=== PATIENT | female | born 1970 | race Caucasian/White ===

== ENCOUNTER 2022-01-06 16:20 | Outpatient (CLI) | payer BC, SELFPAY ==
--- NOTE | ~2022-01-06 | XR_ITS ---
XR chest 2V DATE: 01/06/2022 16:55 INDICATION: Cough for 2 months TECHNIQUE: PA and lateral views COMPARISON: None FINDINGS: Normal heart size. Mild aortic arch calcification, minimal aortic unfolding. Prominent card iophrenic fat pad on the right. No hilar or mediastinal enlargement. No pulmonary infiltrate or consolidation, pleural effusion or pulmonary vascular congestion or pneumo thorax. Included skeletal structures are unremarkable. IMPRESSION: No active cardiopulmonary disease Mild aortic atherosclerosis Reviewed, dictated and finalized at location A.
[2022-01-06 16:57] LABS: Mean Corpuscular Hemoglobin 15.6 pg (26-34); Mean Corpuscular Volume 62.2 fl (80-100); Mean Platelet Volume 9.6 fl (7.4-10.4); Platelet Count Result 339 k/mm3 (150-375); Red Blood Count 3.15 M/mm3 (4.2-5.4); Red Cell Distribution Width 19.6 % (11.5-14.5); White Blood Count 8.5 K/mm3 (4.5-10.0)
[2022-01-06 17:16] LABS: LDL Cholesterol Direct 100 mg/dL
[2022-01-06 17:19] LABS: Hematocrit 19.6 % (37.0-47.0); Hemoglobin 4.9 g/dL (12.0-15.0)
[2022-01-06 17:40] LABS: Alanine Aminotransferase 16 U/L (4-35); Albumin Level 4.3 g/dL (3.5-5.1); Alkaline Phosphatase 81 U/L (38-126); Anion Gap 8 mmol/L (8-16); Aspartate Amino Transferase 21 U/L (14-36); Bilirubin,Total 1.1 mg/dL (0.2-1.3); Blood Urea Nitrogen 13 mg/dL (7-17); Calcium 8.6 mg/dL (8.4-10.2); Carbon Dioxide 24 mmol/L (22-30); Chloride 106 mmol/L (98-107); Cholesterol 160 mg/dL (0-200); Glucose 97 mg/dL (65-110); HDL Direct 30 mg/dL; Potassium 3.8 mmol/L (3.4-5.0); Sodium 138 mmol/L (137-145); Triglycerides 101 mg/dL (<150)
[2022-01-06 17:53] LABS: Estimated Glomerular Filt Rate > 60
[2022-01-06 17:57] LABS: Vitamin D 25 Hydroxy 28.2 ng/mL
== END 2022-01-06 16:21 | disposition home or self-care (01) ==
PROVIDERS: PCP Family Medicine; Visit Provider Nurse Practitioner Family
DX: R05.9 Cough, unspecified (principal); Z68.37 Body mass index [BMI] 37.0-37.9, adult; Z13.220 Encounter for screening for lipoid disorders; Z13.29 Encounter for screening for other suspected endocrine disorder; E56.9 Vitamin deficiency, unspecified; N92.0 Excessive and frequent menstruation with regular cycle; I70.0 Atherosclerosis of aorta
CPT/HCPCS: 36415; 71046; 80053; 80061; 82306; 84443; 85027

== ENCOUNTER 2022-01-06 17:58 | Observation (INO) | payer BC, SELFPAY ==
[2022-01-06] VITALS (10 sets, daily range): BP systolic 131–183; BP diastolic 58–83; PULSE 9–111; RESP 14–26; TEMP 33.8–37.1; O2SAT 98–100; BMI 36.3
--- NOTE | ~2022-01-06 | US_ITS ---
EXAMINATION: US pelvic complete w TV DATE: 01/07/2022 17:09 INDICATION: Heavy menstruation. Anemia. TECHNIQUE: Multiple transabdominal and transvaginal sonographic images of the pelvis were obtained. COMPARISON: None. FINDINGS: TRANSABDOMINAL ULTRASOUND: The uterus measures 10.6 x 5.6 x 6.4 cm. There is no free fluid in the pelvis. TRANSVAGINAL ULTRASOUND: The endometrial complex measures 8 mm in thickness. There is a 5.5 cm submucosal fibroid. The right o vary measures 2.5 x 2.0 x 1.1 cm. The left ovary measures 4.0 x 2.0 x 2.6 cm. IMPRESSION: 1. Uterine fibroid. Reviewed, dictated and finalized at location A. IMPRESSION: 1. Uterine fibroid.
--- NOTE | 2022-01-06 18:30 | ED.RECABL ---
HPI - Recheck/Abnormal Lab/Rx General Chief Complaint: Recheck/Abnormal Lab/Rx Stated Complaint: low hemoglobin Time Seen by Provider: 01/06/22 18:07 History of Present Illness HPI narrative: Patient is a 51-year-old female who presents ER with abnormal hemoglobin level. Patient was seen in the PCP office today for weakness that is been ongoing over the last 2 months. She gets some occasional dizziness. Lab work showed that her hemoglobin was 4.3. She reports that she does have heavy and frequent menstrual periods. This has been ongoing for years. She has not seen a surveyor's assistant. She reports when she is on her cycle she will go through about 8 tampons in a day with an additional 3-4 pads. No history of bleeding disorder. She is not on any blood thinners. Denies dark black stools. Related Data Allergies Allergy/AdvReac Type Severity Reaction Status Date / Time Sulfa (Sulfonamide AdvReac Intermediate Rash Verified 01/06/22 18:15 Antibiotics) Review of Systems Constitutional: Constitutional: Denies chills, Reports fatigue, Denies fever(s) and Reports weakness ENT: Denies nasal congestion and Denies sore throat Cardiovascular: Cardiovascular: Denies chest pain, Denies rapid heart rate and Denies radiating jaw, neck or arm pain Respiratory: Respiratory: Denies cough, Denies dyspnea and Denies wheezing Gastrointestinal: Gastrointestinal: Denies nausea and Denies vomiting Genitourinary: Genitourinary: Reports abnormal vaginal bleeding [facility] Past Medical History Medical History (Updated 01/06/22 @ 21:25 by Sergey Delong MD) BMI 37.0-37.9, adult GERD (gastroesophageal reflux disease) Hypertension Surgical History Surgical History (Updated 01/06/22 @ 18:32 by Sergey Delong MD) No pertinent past surgical history Family History Family History Father Asthma Hypertension Hyperlipidemia Acute myocardial infarction Mother Asthma Sibling Asthma Hypertension Social History Social History Smoking status: Never smoker Second hand tobacco smoke exposure: No Alcohol intake: current Substance use: never Substance use type: does not use 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 Gender identity (if verbalized by the patient): Female Exam Narrative: GENERAL: Well-appearing, well-nourished, and in no acute distress. HEAD: Normocephalic, atraumatic. EYES: PERRL and EOMI. ENT: Mucous membranes moist. CHEST: Clear to auscultation. No respiratory distress. HEART: Regular rate and rhythm. Normal peripheral pulses. ABDOMEN: Soft, nontender, nondistended. EXTREMITIES: Normal range of motion. No edema. SKIN: Warm, dry, no rash. NEURO: Alert and oriented x3. PSYCH: Normal mood and affect. Course Course Emergency Course: Patient informed of results. Admit to hospitalist service. Will transfuse. Vital Signs Vital signs: Vital Signs Temperature 96.6 F L 01/06/22 18:00 Pulse Rate 111 H 01/06/22 18:00 Respiratory Rate 20 01/06/22 18:00 Blood Pressure 183/79 H 01/06/22 18:00 Pulse Oximetry 100 01/06/22 18:00 Temperature 97.9 F 01/06/22 20:32 Pulse Rate 93 01/06/22 20:32 Respiratory Rate 22 H 01/06/22 20:32 Blood Pressure 152/72 H 01/06/22 20:32 Pulse Oximetry 100 01/06/22 20:32 MDM - Recheck/Abnormal Lab/Rx Lab Data Result diagrams: 01/06/22 18:19 Labs: Lab Results 01/06/22 01/06/22 01/06/22 Range/Units 18:19 18:19 18:19 WBC (4.5-10.0) K/mm3 RBC (4.2-5.4) M/mm3 Hgb (12.0-15.0) g/dL Hct (37.0-47.0) % MCV (80-100) fl MCH (26-34) pg MCHC (32-36) g/dl RDW (11.5-14.5) % Plt Count (150-375) k/mm3 MPV (7.4-10.4) fl Immature Gran % (Auto) (0-0.5) % Neut % (Auto) (45.5-73.1) % Lymph % (Auto) (18.3-44.2) % Cowley % (Au
[2022-01-06 18:34] LABS: Immature Reticulocyte Fraction 22.9 % (3.0-15.9); Reticulocyte Hemoglobin Conten 14.7 pg (28.2-35.7); Reticulocytes Absolute 0.07 B/L (32.2-175.7)
--- NOTE | 2022-01-06 18:41 | PC.NURSE ---
rectal exam done by provider with typewriter operator automatic present
[2022-01-06 19:20] LABS: Iron 19 ug/dL (37-170)
[2022-01-06 19:25] LABS: Basophils Percent Auto 0.4 % (0.2-1.2); Eosinophils Absolute Auto 0.1 K/mm3 (0-0.3); Eosinophils Percent Auto 0.8 % (0-4.4); Immature Granulocyte Absolute 0.03 K/mm3 (0.00-0.031); Immature Granulocyte Percent A 0.4 % (0-0.5); Lymphocytes Absolute Auto 1.69 K/mm3 (0.9-3.2); Lymphocytes Percent Auto 19.9 % (18.3-44.2); Mean Corpuscular HGB Conc 24.4 g/dl (32-36); Mean Corpuscular Hemoglobin 15.1 pg (26-34); Mean Corpuscular Volume 61.9 fl (80-100); Mean Platelet Volume 10.5 fl (7.4-10.4); Monocytes Absolute Auto 0.6 K/mm3 (0.1-0.6); Monocytes Percent Auto 7.4 % (2.6-8.5); Neutrophils Percent Auto 71.1 % (45.5-73.1); Platelet Count Result 376 k/mm3 (150-375); Red Blood Count 3.18 M/mm3 (4.2-5.4); Red Cell Distribution Width 19.9 % (11.5-14.5); White Blood Count 8.5 K/mm3 (4.5-10.0)
[2022-01-06 19:34] LABS: Hematocrit 19.7 % (37.0-47.0); Hemoglobin 4.8 g/dL (12.0-15.0); Percent Iron Saturation 4 % (20-50)
[2022-01-06 19:35] LABS: Hypochromasia 2+ (NORMAL); Ovalocytes 1+ (NORMAL); Platelet Estimate Increased (Adequate)
[2022-01-06 19:56] LABS: Ferritin 3.51 ng/mL (11.1-264)
[2022-01-06] MEDS: TUBING, BLOOD SET 1 EACH XX (20:17)
[2022-01-06] MEDS: SODIUM CHLORIDE 0.9% IV 250 ML 30 ML IV CONT (20:17)
--- NOTE | 2022-01-06 20:21 | PM.IMHP ---
H&P: HPI History of Present Illness Date/Time: 01/06/22 20:21 Chief Complaint: Fatigue. Narrative: This is a 51-year-old female with past medical history significant for gastroesophageal reflux disease. Patient recently moved to the area roughly 2 years ago she has been trying to get her care established. She presents to the emergency room due to fatigue, shortness of breath, dizziness. Patient's workup was significant for hemoglobin of 4.8 . Patient denies any melena, bright red blood per rectum, hematemesis, unintentional weight loss, she states that has heavy menses. Patient denies any nausea, vomiting, abdominal pain, chest pain, leg swelling. Patient is being admitted for blood transfusion, further evaluation ,management and treatment. Review of Systems Review of Systems: Fatigue, dizziness, shortness of breath, palpitations. Constitutional: Constitutional: Denies chills, Reports fatigue, Denies fever(s), Denies headache(s), Reports lethargy, Denies malaise, Denies night sweats, Denies weakness and Denies weight loss Eyes: Eyes: Denies change in vision ENT: Denies dysphagia, Denies vertigo, Reports dizziness, Denies nasal congestion, Denies nasal discharge, Denies nasal obstruction and Denies odynophagia Cardiovascular: Cardiovascular: Denies chest pain, Denies pedal edema, Denies edema, Denies leg edema, Reports lightheadedness, Denies palpitations, Reports dyspnea, Reports dyspnea on exertion, Denies orthopnea and Denies paroxysmal nocturnal dyspnea Respiratory: Respiratory: Denies cough and Denies dyspnea Gastrointestinal: Gastrointestinal: Denies hematochezia, Denies coffee ground emesis, Denies dyspepsia, Denies heartburn, Denies nausea and Denies vomiting Genitourinary: Genitourinary: Reports menorrhagia and Denies dysuria Musculoskeletal: Musculoskeletal: Denies muscle weakness Integumentary/Breasts: Skin/Breast: Denies rash Neurologic: Denies focal weakness and Denies Sensory deficit (Neuro) Psychiatric: Psychiatric: Reports no additional psychiatric complaints and Reports as per HPI Endocrine: Endocrine: Denies cold intolerance, Denies fatigue, Denies flushing, Denies heat intolerance, Denies polyphagia, Denies polydipsia and Denies palpitations Hematologic/Lymphatic: Hematologic/Lymphatic: Denies easy bleeding and Denies easy bruising Allergic/Immunologic: Allergic/Immunologic: Reports no additional allergic/immunologic complaints and Reports as per HPI [facility] Past Medical History Medical History (Updated 01/07/22 @ 00:56 by Moriah Card MD) BMI 37.0-37.9, adult GERD (gastroesophageal reflux disease) Hypertension Surgical History Surgical History (Updated 01/06/22 @ 18:32 by Sergey Delong MD) No pertinent past surgical history Family History Family History Father Asthma Hypertension Hyperlipidemia Acute myocardial infarction Mother Asthma Sibling Asthma Hypertension Social History Social History Smoking status: Never smoker Second hand tobacco smoke exposure: No Alcohol intake: current Drinks per week: 3 Substance use: never Substance use type: does not use 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
--- NOTE | 2022-01-06 20:25 | PC.NURSE ---
1st unit of PRBCs infusing at this time. no s/s of reaction
--- NOTE | 2022-01-06 20:54 | PC.NURSE ---
error with intake of HR for vital signs. HR incorrect with 9, corrected in TAR vitals
[2022-01-06 21:12] LABS: SARS-CoV-2 RNA PCR Negative
--- NOTE | 2022-01-06 23:04 | PC.NURSE ---
This patient, Ana Jacome, was admitted to Medical Room 349-01. Patient/family oriented to hospital policies and general routines including ID bracelet, bed and alarms, visiting hours, pain management, procedures, bathroom and other care routines, personal items, smoking policy, room service/diet, and visiting hours. Information on how to activate the Rapid Response Team has been discussed. Patient/Family are encouraged to report perceived risks to care and to ask questions if they do not understand what they are told or what they should do. Second unit of blood started, see TAR
[2022-01-07] VITALS: BP 131/58; PULSE 88; RESP 20; TEMP 37; O2SAT 100
[2022-01-07 01:10] VITALS: BP 148/77; PULSE 84; RESP 20; TEMP 36.6; O2SAT 98
[2022-01-07 05:51] LABS: Hematocrit 25.8 % (37.0-47.0); Hemoglobin 7.2 g/dL (12.0-15.0); Immature Platelet Fraction Pct 4.3 % (0.9-11.2); Mean Corpuscular HGB Conc 27.9 g/dl (32-36); Mean Corpuscular Hemoglobin 19.2 pg (26-34); Mean Corpuscular Volume 68.8 fl (80-100); Mean Platelet Volume 10.3 fl (7.4-10.4); Platelet Count Result 298 k/mm3 (150-375); Red Blood Count 3.75 M/mm3 (4.2-5.4); Red Cell Distribution Width 25.3 % (11.5-14.5); White Blood Count 6.6 K/mm3 (4.5-10.0)
[2022-01-07 06:00] VITALS: BP 135/66; PULSE 78; RESP 16; TEMP 37.1; O2SAT 99
[2022-01-07 14:00] VITALS: BP 147/76; PULSE 103; RESP 20; TEMP 36.4; O2SAT 98
--- NOTE | 2022-01-07 17:20 | PM.DS ---
DS: Admitting Diagnosis Discharge Date 01/07/22 Admitting Diagnosis (1) Hypochromic microcytic anemia: Code(s): D50.9 - Iron deficiency anemia, unspecified Status: Acute Assessment and Plan: (2) Dysmenorrhea: Code(s): N94.6 - Dysmenorrhea, unspecified Status: Acute Assessment and Plan: (3) Hypertension: Qualifiers: Hypertension type: primary hypertension Qualified Code(s): I10 - Essential (primary) hypertension Code(s): I10 - Essential (primary) hypertension Status: Acute Assessment and Plan: (4) GERD (gastroesophageal reflux disease): Qualifiers: Code(s): K21.9 - Gastro-esophageal reflux disease without esophagitis Status: Acute Assessment and Plan: DS: Discharge Diagnosis Discharge Diagnosis (1) Dysmenorrhea: Code(s): N94.6 - Dysmenorrhea, unspecified Status: Acute (2) Hypochromic microcytic anemia: Code(s): D50.9 - Iron deficiency anemia, unspecified Status: Acute (3) Anemia: Code(s): D64.9 - Anemia, unspecified Status: Acute (4) Hypertension: Qualifiers: Hypertension type: primary hypertension Qualified Code(s): I10 - Essential (primary) hypertension Code(s): I10 - Essential (primary) hypertension Status: Acute (5) GERD (gastroesophageal reflux disease): Qualifiers: Esophagitis presence: esophagitis presence not specified Qualified Code(s): K21.9 - Gastro-esophageal reflux disease without esophagitis Code(s): K21.9 - Gastro-esophageal reflux disease without esophagitis Status: Acute (6) Heavy menses: Qualifiers: Menorrhagia type: with regular cycle Qualified Code(s): N92.0 - Excessive and frequent menstruation with regular cycle Code(s): N92.0 - Excessive and frequent menstruation with regular cycle Status: Acute (7) BMI 37.0-37.9, adult: Code(s): Z68.37 - Body mass index [BMI] 37.0-37.9, adult Status: Acute (8) Uterine fibroid: Code(s): D25.9 - Leiomyoma of uterus, unspecified Status: Acute DS: Summary Hospital Course Reason for hospitalization: anemia Hospital Course: 51 yo F w menorrhagia admitted to hospital w anemia 2/2 blood loss. received 2U PRBCs and was discharged home in stable condition on Fe++ w indications to follow up w PCP x referral to vocational rehabilitation teacher for ongoing care. Time Spent with Patient Time attestation: Total time spent providing and/or coordinating discharge services: Time spent: Less than 30 minutes Exam Const: General: cooperative, comfortable, no acute distress, well developed, alert, awake and other (Well-appearing) Nutritional Appearance: average body habitus Orientation/consciousness: patient oriented x3 HENMT: Head: normal to inspection, normocephalic and atraumatic Ears: hearing grossly normal bilaterally General nose exam: Normal external nose present Face and sinus: normal facial exam Mouth: Yes Normal oral and palatal mucosa present Eyes: General: appearance normal, both eyes and all related structures Sclera: sclerae normal EOM: EOMs intact bilaterally Neck: Neck: normal visual inspection, full ROM, no lymphadenopathy, supple and no JVD Resp: Effort & Inspection: normal respiratory effort and able to speak in complete sentences Cardio: Jugular venous distension: no JVD GI: Inspection: normal to inspection : General: Yes deferred Skin: Rashes: no rashes Wounds: no wounds Neuro: General: patient oriented x3 and CN's II-XI intact bilaterally Cranial nerves: Yes CN's II-XII intact bilaterally Cognition (Neuro): normal cognition Speech: normal speech Gait exam (Neuro): Normal gait present Motor exam (neuro): 5/5 motor strength present throughout Sensory Exam: No Sensory deficit (Neuro) Extrem: General: normal to inspection, full ROM, no joint enlargement and no pedal edema DS: Data Data Completed an
== END 2022-01-07 17:55 | disposition home or self-care (01) ==
LOC: ANHED 21:25 → ANH3MED 21:28
PROVIDERS: Internal Medicine; Admitting Provider Hospitalist; Emergency Provider Emergency Medicine; PCP Family Medicine; Visit Provider Hospitalist
DX: D50.9 Iron deficiency anemia, unspecified (principal); N94.6 Dysmenorrhea, unspecified; N92.0 Excessive and frequent menstruation with regular cycle; D25.9 Leiomyoma of uterus, unspecified; R53.83 Other fatigue; R06.02 Shortness of breath; R42 Dizziness and giddiness; K21.9 Gastro-esophageal reflux disease without esophagitis; I10 Essential (primary) hypertension; Z68.37 Body mass index [BMI] 37.0-37.9, adult; Z20.822 Contact with and (suspected) exposure to COVID-19
CPT/HCPCS: 36415; 36430; 76830; 76856; 82607; 82728; 82746; 83540; 83550; 84443; 85025; 85027; 85046; 85055; 86850; 86900; 86901; 86920; 96360; 96361; 99285; C9803; G0378; J7050; P9016; U0003; U0005

== ENCOUNTER 2022-01-15 08:08 | Outpatient (CLI) | payer BC, SELFPAY ==
[2022-01-15 08:20] LABS: Hemoglobin 7.8 g/dL (12.0-15.0); Mean Corpuscular HGB Conc 27.9 g/dl (32-36); Mean Corpuscular Hemoglobin 19.2 pg (26-34); Mean Corpuscular Volume 68.8 fl (80-100); Mean Platelet Volume 9.9 fl (7.4-10.4); Platelet Count Result 326 k/mm3 (150-375); Red Blood Count 4.07 M/mm3 (4.2-5.4); Red Cell Distribution Width 27.1 % (11.5-14.5); White Blood Count 6.4 K/mm3 (4.5-10.0)
== END 2022-01-15 08:09 | disposition home or self-care (01) ==
LOC: ANHLAB 08:10
PROVIDERS: PCP Family Medicine; Visit Provider Nurse Practitioner Family
DX: D64.9 Anemia, unspecified (principal)
CPT/HCPCS: 36415; 85027

== ENCOUNTER 2022-02-12 11:14 | Outpatient (CLI) | payer BC, SELFPAY ==
--- NOTE | 2022-02-12 11:41 | ECG_ITS ---
Measurements Intervals Manter Rate: 80 P: 47 MD: 152 QRS: 13 QRSD: 91 T: 11 QT: 368 QTc: 426 Interpretive Statements SINUS RHYTHM NO PREVIOUS ECG AVAILABLE FOR COMPARISON Electronically Signed On 02-12-2022 13:47:36 CDT by Jhonatan Bass M.D.
[2022-02-12 12:28] LABS: Hematocrit 26.6 % (37.0-47.0); Hemoglobin 7.2 g/dL (12.0-15.0); Immature Platelet Fraction Pct 5.2 % (0.9-11.2); Mean Corpuscular HGB Conc 27.1 g/dl (32-36); Mean Corpuscular Hemoglobin 19.4 pg (26-34); Mean Corpuscular Volume 71.5 fl (80-100); Platelet Count Result 273 k/mm3 (150-375); Red Blood Count 3.72 M/mm3 (4.2-5.4); Red Cell Distribution Width 24.2 % (11.5-14.5); White Blood Count 5.1 K/mm3 (4.5-10.0)
== END 2022-02-12 11:15 | disposition home or self-care (01) ==
LOC: ANHLAB 11:16
PROVIDERS: PCP Family Medicine; Visit Provider Nurse Practitioner Family
DX: D50.9 Iron deficiency anemia, unspecified (principal); I10 Essential (primary) hypertension
CPT/HCPCS: 36415; 85027; 85055; 93005

== ENCOUNTER 2022-02-14 01:41 | Day surgery (SDC) | payer BC, SELFPAY ==
[2022-02-08 15:30] VITALS: BMI 34.9
--- NOTE | 2022-02-08 15:42 | PC.NURSE ---
Report to the Outpatient Waiting Room, entrance under the green pavilion located off [facility], at time 10:00 on date 02/14/22. OR Time: 12:00. - You and your visitor will be asked a series of questions to screen for COVID 19 for your protection. - Only one visitor is allowed at this time. - The patient visitor is requested to leave or wait in car when not with patient. - A mask is required within the hospital. Patients may have clear liquids (water, carbonated beverages, clear teas, apple juice) until 3 hours prior to surgery (9:00) with a maximum of 20 ounces. - No food from midnight until time of surgery Take the following medications with a SIP of water the morning of surgery: NONE Medications to discontinue per physician: VITAMINS Date to take last dose: 02/11/22 Please no make-up, nail yi, hairspray, perfume, deodorant, or body powder the day of surgery. No jewelry (including any body piercings) or valuables the day of surgery, leave them at home. Please take a shower or bath the night before, or the morning of, surgery with an antibacterial soap. Wear comfortable, loose fitting clothing. - Jewelry must be removed prior to entering the operating room. Rings and piercings that are not removed may be cut off. - The hospital will not accept responsibility for valuables. - Please leave all valuables, including medications, at home the day of surgery. If you are going home after surgery, a licensed lokie driver must drive you home. - NO public transportation without another adult. - We recommend that an adult stay with you for 24 hours following discharge. - We also recommend that you do not drive, make important decision, drink alcoholic beverages, or take any drugs that were not prescribed by your health care provider for at least 24 hours after your discharge time. Follow any additional instructions given to you from your surgeon. If you or anyone in your household have experienced Covid symptoms in the past week, please notify your surgeon or the nurse liaison at the phone number below for possible testing. Telephone instructions given to MICKIE NGUYEN and asked if any additional questions and then verbalized understanding. Patient advised to call surgeon office or pre surgery nurse liaison [phone] if any additional questions.
--- NOTE | 2022-02-14 06:57 | WPDHPUPDATE1 ---
History and Physical Update Update Date/Time: 02/14/22 06:57 History and Physical has been reviewed, including an updated exam of the patient. There are NO changes in the patient's condition. Risks, benefits, and alternatives have been discussed and questions answered. Patient agrees to proceed with procedure.
--- NOTE | 2022-02-14 06:57 | PM.HPGS ---
History of Present Illness History of Present Illness Consent: Risks, benefits, and alternatives have been discussed and questions answered. Patient agrees to proceed with procedure. Chief complaint: menorrhagia Narrative: Nicky Jacome is a 51 year old female with menorrhagia and severe anemia. Patient saw her primary physician for a well check and routine labs revealed hemoglobin to be 4.8 therefore the patient was sent to the emergency room and transfused 2units of packed red blood cells. Patient was referred for further evaluation. Ultrasound shows a 5.5cm fibroid. Upon review of her cycles the patient states her cycles have been getting heavier with clots. She is using a pad and tampon about every hour for the 1st 2 to 3 days. Her cycles last a total 5 days. It was recommended to proceed with hysteroscopy D and C and removal of the prolapsed fibroid found on exam. Possible additional myomectomy if submucosal fibroids are found. Risks of infection, bleeding, perforation, and fluid imbalance were reviewed. Due to the prolapse fibroid the inability to perform additional myomectomy was discussed. She is aware a 2nd procedure may be need to be performed. Patient voiced understanding and agrees to proceed. Review of Systems Constitutional: Constitutional: Reports fatigue Gastrointestinal: Gastrointestinal: Reports constipation and Reports diarrhea Genitourinary: Genitourinary: Reports urinary incontinence (Urge incontinence occasionally; dysmenorrhea) and Reports urinary urgency PMFSH Past Medical History Medical History BMI 36.0-36.9,adult BMI 37.0-37.9, adult GERD (gastroesophageal reflux disease) Hypertension Surgical History Surgical History No pertinent past surgical history Family History Family History Father Asthma Hypertension Hyperlipidemia Acute myocardial infarction Mother Asthma Sibling Asthma Hypertension Social History Social History Smoking status: Never smoker Second hand tobacco smoke exposure: No Alcohol intake: current Drinks per week: 2 Substance use: never Substance use type: does not use Living arrangements: with family 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 verbalized by the patient): Female Spiritual care concerns: No Meds Home Medications and Allergies Home Medications Medication Instructions Recorded Confirmed Type ferrous sulfate 325 mg (65 mg 325 mg PO BID #60 tabs 01/07/22 02/08/22 Rx iron) tablet,delayed release lisinopril 10 mg tablet 10 mg PO DAILY #30 tabs 01/21/22 02/08/22 Rx cholecalciferol (vitamin D3) 1,250 50,000 unit PO WEEKLY #8 caps 02/07/22 02/08/22 Rx mcg (50,000 unit) capsule tranexamic acid 650 mg tablet 650 mg PO BID #60 tabs 02/07/22 02/08/22 Rx omeprazole 20 mg capsule,delayed 20 mg PO HS 02/08/22 02/08/22 History release Allergies Allergy/AdvReac Type Severity Reaction Status Date / Time Sulfa (Sulfonamide AdvReac Intermediate Rash Verified 02/08/22 15:27 Antibiotics) Exam Const: General: healthy appearing and alert Orientation/consciousness: patient oriented x3 Resp: Effort & Inspection: normal respiratory effort Auscultation: clear to auscultation bilaterally Cardio: Rate: regular rate Rhythm: regular rhythm GI: GI Palp: Yes Soft to palpation, No Tenderness to palpation present (GI) and No Palpable mass present : External Female Exam: normal external appearance Speculum Exam - Vagina: normal appearance of the vagina and normal vaginal discharge Speculum Exam - Cervix: Other cervical findings present (2cm prolapsed fibroid) Bimanual exam- vagina & uterus: uterine size normal and consistency normal
[2022-02-14] MEDS: ACETAMINOPHEN 500 MG TABLET 1000 MG PO (10:10)
[2022-02-14] MEDS: LACTATED RINGERS 1,000 ML 30 ML IV CONT ×2 (10:10→13:04)
--- NOTE | 2022-02-14 10:12 | WPDANESEPPF ---
Anes - Initial Pre Proc Eval Procedure: Operation Date: 02/14/22 12:00 Proposed Procedures p Hysteroscopy Dilation and Curettage - Melissa Nava MD Date/Time: 02/14/22 10:12 Surgeon: Melissa Nava MD Pre Op Diagnosis: menorrhagia Patient Data Age: 51 Gender: F Height: 1.6 m Weight: 88 kg Allergies Allergy/AdvReac Type Severity Reaction Status Date / Time Sulfa (Sulfonamide AdvReac Intermediate Rash Verified 02/08/22 15:27 Antibiotics) Home Medications Medication Instructions Recorded Confirmed Type ferrous sulfate 325 mg (65 mg 325 mg PO BID #60 tabs 01/07/22 02/08/22 Rx iron) tablet,delayed release lisinopril 10 mg tablet 10 mg PO DAILY #30 tabs 01/21/22 02/08/22 Rx cholecalciferol (vitamin D3) 1,250 50,000 unit PO WEEKLY #8 caps 02/07/22 02/08/22 Rx mcg (50,000 unit) capsule tranexamic acid 650 mg tablet 650 mg PO BID #60 tabs 02/07/22 02/08/22 Rx omeprazole 20 mg capsule,delayed 20 mg PO HS 02/08/22 02/08/22 History release Patient hx anesthesia problems: none Family hx anesthesia problems: none Results Review: All pre-operative results and documents have been reviewed as part of the pre-operative evaluation. [facility] Past Medical History Medical History BMI 36.0-36.9,adult BMI 37.0-37.9, adult GERD (gastroesophageal reflux disease) Hypertension Surgical History Surgical History No pertinent past surgical history Family History Family History Father Asthma Hypertension Hyperlipidemia Acute myocardial infarction Mother Asthma Sibling Asthma Hypertension Social History Social History Smoking status: Never smoker Second hand tobacco smoke exposure: No Alcohol intake: current Drinks per week: 2 Substance use: never Substance use type: does not use Living arrangements: with family 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 Informed Consent: The patient's anesthetic plan and its attendant risks and benefits were discussed with the patient/family/POA. Questions were solicited and answers provided to the satisfaction of the patient/family/POA.
[2022-02-14 10:13] VITALS: BP 144/79; PULSE 85; RESP 16; TEMP 36.3; O2SAT 99
[2022-02-14 13:04] VITALS: BP 124/67; PULSE 69; RESP 20
--- NOTE | 2022-02-14 13:07 | W.PM.PROC2 ---
Procedure Note - Detailed Date of Procedure 02/14/22 Pre-op Diagnosis menorrhagia Post-op Diagnosis Same Procedure Performed Hysteroscopic myomectomy with D&C Surgeon Melissa Nava MD Anesthesia MAC and Local Findings Prolapsed 2x2cm mass through the cervix appears to be a polyp due to the mucus although the consistency could also be a fibroid. Three large submucosal fibroids grossly appearing endometrial cavity Description of Procedure The patient was taken to the operating room and placed under anesthesia in the dorsal lithotomy position. She was prepped and draped in the usual sterile fashion. [place] speculum was placed in the vagina and the cervix is grasped on the anterior lip with a tenaculum. The cervix is serially injected with 1% lidocaine in each quadrant. The ring forceps were used to remove the prolapsed mass. The uterus is sounded to 8cm. The cervix is then serially dilated with Hegar to an 8. The diagnostic hysteroscope was placed with a large fibroid filling the cavity and a polyp anteriorly. The large MyoSure was opened and placed the polyp and fibroid are removed in their entirety and then a 2nd fibroid is noted behind the 1st. This is also removed in its entirety and a 3rd fibroid is noted at the fundus. This fibroid is mostly removed with the MyoSure. The myoma graspers are then used to grasp the remainder which was removed in 2 separate pieces. The hysteroscope was replaced and fibroids are completely excised. The hysteroscope was removed and the medium sharp curette is used to curette the endometrium until a good uterine cry was noted in all areas. Minimal material was obtained. Fluid deficit at the end of the procedure was 750cc. Sponge, needle, and instrument counts are correct per the OR staff. Patient is awakened from anesthesia and taken to recovery in stable condition. Estimated Blood Loss 50 Drains No Packing No Pathology Yes (MyoSure shavings, curettings, myoma pieces) Complications No immediate complications Condition Stable Disposition PACU
--- NOTE | 2022-02-14 13:12 | WPDHPUPDATE1 ---
History and Physical Update Update Date/Time: 02/14/22 13:12 History and Physical has been reviewed, including an updated exam of the patient. There are NO changes in the patient's condition. Risks, benefits, and alternatives have been discussed and questions answered. Patient agrees to proceed with procedure. MRI of brain normal. 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 Plan post op x 7 days Prednisone 60 mg/day.
[2022-02-14 13:30] VITALS: BP 118/67; PULSE 70; RESP 20
[2022-02-14 14:00] VITALS: BP 120/65; PULSE 65; RESP 20
[2022-02-14 14:20] VITALS: BP 119/65; PULSE 70; RESP 20
== END 2022-02-14 14:30 | disposition home or self-care (01) ==
PROVIDERS: PCP Family Medicine; Visit Provider Obstetrics & Gynecology Gynecology
PROC: 0U5B8ZZ Destruction of Endometrium, Via Natural or Artificial Opening Endoscopic (ICD-10-PCS; CPT 58563; principal; 2022-02-14 12:00)
DX: N92.0 Excessive and frequent menstruation with regular cycle (principal); D25.0 Submucous leiomyoma of uterus; N85.01 Benign endometrial hyperplasia; D64.9 Anemia, unspecified; I10 Essential (primary) hypertension; K21.9 Gastro-esophageal reflux disease without esophagitis; E66.9 Obesity, unspecified; Z68.34 Body mass index [BMI] 34.0-34.9, adult
CPT/HCPCS: 58561; 88305; A9270; J1100; J2250; J2405; J2704; J3010; J7030; J7120

== ENCOUNTER 2022-03-05 09:20 | Outpatient (CLI) | payer BC, SELFPAY ==
[2022-03-05 10:04] LABS: Basophils Absolute Auto 0.1 K/mm3 (0.0-0.1); Basophils Percent Auto 0.9 % (0.2-1.2); Eosinophils Absolute Auto 0.1 K/mm3 (0-0.3); Eosinophils Percent Auto 1.4 % (0-4.4); Hematocrit 26.4 % (37.0-47.0); Hemoglobin 7.2 g/dL (12.0-15.0); Immature Granulocyte Absolute 0.01 K/mm3 (0.00-0.031); Immature Granulocyte Percent A 0.2 % (0-0.5); Lymphocytes Absolute Auto 1.26 K/mm3 (0.9-3.2); Lymphocytes Percent Auto 22.3 % (18.3-44.2); Mean Corpuscular HGB Conc 27.3 g/dl (32-36); Mean Corpuscular Hemoglobin 19.3 pg (26-34); Mean Corpuscular Volume 70.8 fl (80-100); Mean Platelet Volume 10.4 fl (7.4-10.4); Monocytes Absolute Auto 0.5 K/mm3 (0.1-0.6); Monocytes Percent Auto 8.7 % (2.6-8.5); Neutrophils Absolute Auto 3.8 K/mm3 (1.3-6.7); Neutrophils Percent Auto 66.5 % (45.5-73.1); Platelet Count Result 393 k/mm3 (150-375); Red Blood Count 3.73 M/mm3 (4.2-5.4); White Blood Count 5.7 K/mm3 (4.5-10.0)
[2022-03-05 10:52] LABS: Large Platelets Present
[2022-03-05 10:53] LABS: Anisocytosis 1+ (NORMAL); Microcytosis 1+ (NORMAL); Ovalocytes 1+ (NORMAL)
== END 2022-03-05 09:21 | disposition home or self-care (01) ==
LOC: ANHLAB 09:22
PROVIDERS: PCP Family Medicine; Visit Provider Nurse Practitioner Family
DX: D64.9 Anemia, unspecified (principal)
CPT/HCPCS: 36415; 85025

== ENCOUNTER 2022-03-11 09:34 | Outpatient (CLI) | payer BC, SELFPAY ==
--- NOTE | 2022-03-11 | ECHO_ITS ---
Patient Info Name: Nicky Jacome Age: 51 years : 1970 Gender: Female Ht: 63 in Wt: 196 lbs BSA: 2.03 m2 HR: 78 bpm BP: 121 / 69 mmHg Technical Quality: Fair Exam Date: 03/11/2022 10:15 AM Exam Location: [facility], formerly 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 Summary 1. Complete two-dimensional, color flow and Doppler transthoracic echocardiogram is performed. 2. Left ventricular chamber dimension is normal. 3. Left ventricular systolic function is normal, estimated at 60-65%. 4. The left ventricular diastolic function is normal. 5. E/e' 7 is not elevated. 6. Left atrial chamber dimension is moderately enlarged. 7. There is trace mitral valve regurgitation. 8. There is trace tricuspid valve regurgitation. 9. Mild pulmonary hypertension, estimated pulmonary arterial systolic pressure is 41 mmHg. Left Ventricle E/e' 7 is not elevated. Left ventricular chamber dimension is normal. Left ventricular systolic function is normal, estimated at 60-65%. The left ventricular diastolic function is normal. Right Ventricle Right ventricular chamber dimension is normal. Right ventricular systolic function is normal. Left Atria Left atrial chamber dimension is moderately enlarged. Right Atria Right atrial chamber dimension is normal. Aortic Valve The aortic valve is trileaflet. There is no aortic valve stenosis. There is no aortic valve regurgitation. Pulmonic Valve There is no pulmonic regurgitation. Mitral Valve There is no mitral valve stenosis. There is trace mitral valve regurgitation. Tricuspid Valve There is trace tricuspid valve regurgitation. Mild pulmonary hypertension, estimated pulmonary arterial systolic pressure is 41 mmHg. Pericardium/Pleural There is no pericardial effusion. Inferior Vena Cava Normal inferior vena cava with >50% collapse upon inspiration consistent with normal right atrial pressure, 5 mmHg. Aorta The aortic root size at the sinus of Valsalva is normal. Left Ventricular Outflow Tract Name Value Normal LVOT 2D LVOT Diameter 2.0 cm LVOT Doppler LVOT Peak Gradient 6 mmHg LVOT Mean Gradient 3 mmHg LVOT VTI 25 cm LVOT VTI/AV VTI Ratio 0.8 LVOT Stroke Volume 79 ml LVOT CO 16.8 l/min LVOT CI 8.3 l/min/m2 Pulmonic Valve Name Value Normal PV Doppler
== END 2022-03-11 09:35 | disposition home or self-care (01) ==
LOC: ANHCARD 09:37
PROVIDERS: PCP Family Medicine; Visit Provider Nurse Practitioner Family
DX: I70.0 Atherosclerosis of aorta (principal); I08.3 Combined rheumatic disorders of mitral, aortic and tricuspid valves
CPT/HCPCS: 93306

== ENCOUNTER 2022-05-07 09:57 | Outpatient (CLI) | payer BC, SELFPAY ==
[2022-05-07 10:26] LABS: Hemoglobin 11.5 g/dL (12.0-15.0)
== END 2022-05-07 09:58 | disposition home or self-care (01) ==
LOC: ANHLAB 09:59
PROVIDERS: PCP Family Medicine; Visit Provider Anesthesiology
DX: D64.9 Anemia, unspecified (principal); Z01.818 Encounter for other preprocedural examination
CPT/HCPCS: 36415; 85014; 85018

== ENCOUNTER 2022-06-06 01:48 | Day surgery (SDC) | payer BC, SELFPAY ==
[2022-05-27 14:39] VITALS: BMI 36.3
--- NOTE | 2022-05-27 14:46 | PC.NURSE ---
Report to the Outpatient Waiting Room, entrance under the green pavilion located off [facility], at time _0600 on date 06/06/22_. OR Time: 0730 . Time changes happen often and if your time is changed the preop area will call you the afternoon before. - You and your visitor will be asked to self-screen and do not enter if you have any COVID symptoms. - Only one visitor and NO children visitors are allowed at this time. - The patient visitor is requested to leave or wait in car when not with patient due to restrictions. - A mask is required within the hospital. Patients may have clear liquids (water, carbonated beverages, clear teas, apple juice) until 3 hours prior to surgery with a maximum of 20 ounces. - No food from midnight until time of surgery - Infants may have breast milk until 4 hours before surgery, infant formula 6 hours prior to surgery. - Children will be allowed to drink immediately following surgery. If applicable, please bring a bottle or sippy cup to assist with drinking. Juice, water, soda, and popsicles are readily available. For infants on formula, please bring formula the day of surgery. Pacifiers are allowed. Take the following medications with a SIP of water the morning of surgery: __NONE Medications to discontinue per physician VITAMIN D HOLD 06/04 DOSE Date to take last dose Please no make-up, nail sinhala, hairspray, perfume, deodorant, or body powder the day of surgery. No jewelry (including any body piercings) or valuables the day of surgery, leave them at home. Please take a shower or bath the night before, or the morning of, surgery with an antibacterial soap. Wear comfortable, loose fitting clothing. Children are encouraged to wear pajamas. - Jewelry must be removed prior to entering the operating room. Rings and piercings that are not removed may be cut off. - The hospital will not accept responsibility for valuables. - Please leave all valuables, including medications, at home the day of surgery. If you are going home after surgery, a licensed special education bus driver must drive you home. - NO public transportation without another adult. - We recommend that an adult stay with you for 24 hours following discharge. - We also recommend that you do not drive, make important decision, drink alcoholic beverages, or take any drugs that were not prescribed by your health care provider for at least 24 hours after your discharge time. For Pediatric surgeries, we recommend two adults accompany the child home (only one inside the building at this time). Follow any additional instructions given to you from your surgeon. If you or anyone in your household have experienced Covid symptoms in the past week, please notify your surgeon or the nurse liaison at the phone number below for possible testing. Telephone instructions given to __PATIENT and asked if any additional questions and then verbalized understanding. Patient advised to call surgeon office or pre surgery nurse liaison [phone] if any additional questions.
[2022-06-06] MEDS: ACETAMINOPHEN 500 MG TABLET 1000 MG PO (06:50)
[2022-06-06] MEDS: LACTATED RINGERS 1,000 ML 30 ML IV CONT (06:50)
--- NOTE | 2022-06-06 07:03 | P.PNAN_ITS ---
Anes - Initial Pre Proc Eval Procedure: Operation Date: 06/06/22 07:30 Proposed Procedures p Hysteroscopy with Dilation and Curettage - Melissa Nava MD Date/Time: 06/06/22 07:03 Surgeon: Melissa Nava MD Pre Op Diagnosis: Complex Hyperplasia without Atypia Patient Data Age: 51 Gender: F Height: 1.57 m Weight: 90 kg Allergies Allergy/AdvReac Type Severity Reaction Status Date / Time Sulfa (Sulfonamide AdvReac Intermediate Rash Verified 05/23/22 13:58 Antibiotics) Home Medications Medication Instructions Recorded Confirmed Type cholecalciferol (vitamin D3) 1,250 50,000 unit PO WEEKLY #8 caps 02/07/22 05/27/22 Rx mcg (50,000 unit) capsule ferrous sulfate 325 mg (65 mg 325 mg PO BID #180 tabs 03/22/22 05/27/22 Rx iron) tablet,delayed release lisinopril 10 mg tablet 10 mg PO DAILY #30 tabs 05/03/22 05/27/22 Rx progesterone micronized 200 mg 200 mg PO QHS 05/23/22 05/27/22 History capsule Patient hx anesthesia problems: none Family hx anesthesia problems: none Results Review: All pre-operative results and documents have been reviewed as part of the pre- operative evaluation. [facility] Past Medical History Medical History BMI 36.0-36.9,adult BMI 37.0-37.9, adult GERD (gastroesophageal reflux disease) Hypertension Surgical History Surgical History H/O dilation and curettage No pertinent past surgical history Family History Family History Father Asthma Hypertension Hyperlipidemia Acute myocardial infarction Mother Osteoporosis Sibling Asthma Hypertension Social History Social History Smoking status: Never smoker Second hand tobacco smoke exposure: No Alcohol intake: current Drinks per week: 2 Substance use: never Substance use type: does not use Living arrangements: with family 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 Gender identity (if verbalized by the patient): Female Spiritual care concerns: No Anes - Eval Final PreProcedure Day of Procedure 06/06/22 07:03 Patient weight: obese Heart: regular rate and rhythm Lungs: clear to auscultation Airway: Mallampati scale class II Neurological: alert and oriented Last oral intake: >/= 8 hours ASA classification: II Emergent: no Anesthetic plan: proceed Anesthesia type and monitoring: general GIVS and standard monitoring Results Review: All pre-operative results and documents have been reviewed as part of the pre- operative evaluation. Informed Consent: The patient's anesthetic plan and its attendant risks and benefits were discussed with the patient/family/POA. Questions were solicited and answers provided to the satisfaction of the patient/family/POA.
--- NOTE | 2022-06-06 07:12 | WPDHPUPDATE1 ---
History and Physical Update Update Date/Time: 06/06/22 07:12 History and Physical has been reviewed, including an updated exam of the patient. There are NO changes in the patient's condition. Risks, benefits, and alternatives have been discussed and questions answered. Patient agrees to proceed with procedure.
--- NOTE | 2022-06-06 07:12 | PM.HPGS ---
History of Present Illness History of Present Illness Consent: Risks, benefits, and alternatives have been discussed and questions answered. Patient agrees to proceed with procedure. Chief complaint: Complex Hyperplasia without Atypia Narrative: Nicky Jacome is a 51 year old female With complex hyperplasia without atypia. D&C hysteroscopy February of 2022 revealed this pathology during a workup for menorrhagia. Was initially recommended to proceed with hysterectomy however the patient elected to proceed with hormone treatment and repeat biopsy. Patient has been on Prometrium 200 mg 12 days per month with improved cycles. She presents today for repeat hysteroscopy D&C. Risks of infection, bleeding, perforation, and possible pathology were reviewed. Patient voices understanding and agrees to proceed. Review of Systems Review of Systems: not repeated day of surgery; patient states no changes in status PMFSH Past Medical History Medical History (Updated 06/06/22 @ 07:16 by Melissa Nava MD) BMI 36.0-36.9,adult BMI 37.0-37.9, adult GERD (gastroesophageal reflux disease) Hypertension Surgical History Surgical History (Updated 06/06/22 @ 07:15 by Melissa Nava MD) H/O dilation and curettage History of hysteroscopy February of 2022 with pathology showing complex hyperplasia without atypia No pertinent past surgical history Family History Family History Father Asthma Hypertension Hyperlipidemia Acute myocardial infarction Mother Osteoporosis Sibling Asthma Hypertension Social History Social History Smoking status: Never smoker Second hand tobacco smoke exposure: No Alcohol intake: current Drinks per week: 2 Substance use: never Substance use type: does not use Living arrangements: with family 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 Gender identity (if verbalized by the patient): Female Spiritual care concerns: No Meds Home Medications and Allergies Home Medications Medication Instructions Recorded Confirmed Type cholecalciferol (vitamin D3) 1,250 50,000 unit PO WEEKLY #8 caps 02/07/22 05/27/22 Rx mcg (50,000 unit) capsule ferrous sulfate 325 mg (65 mg 325 mg PO BID #180 tabs 03/22/22 05/27/22 Rx iron) tablet,delayed release lisinopril 10 mg tablet 10 mg PO DAILY #30 tabs 05/03/22 05/27/22 Rx progesterone micronized 200 mg 200 mg PO QHS 05/23/22 05/27/22 History capsule Allergies Allergy/AdvReac Type Severity Reaction Status Date / Time Sulfa (Sulfonamide AdvReac Intermediate Rash Verified 05/23/22 13:58 Antibiotics) Exam Const: General: healthy appearing and alert Orientation/consciousness: patient oriented x3 GI: GI Palp: Yes Soft to palpation, No Tenderness to palpation present (GI) and No Palpable mass present : External Female Exam: normal external appearance Speculum Exam - Vagina: normal appearance of the vagina and normal vaginal discharge Speculum Exam - Cervix: normal appearance of the cervix Bimanual exam- vagina & uterus: uterine size normal and consistency normal Bimanual Exam- Adnexa, other: normal adnexae and No adnexal tenderness Neuro: General: patient oriented x3 Assessment and Plan Assessment and plan (1) Endometrial hyperplasia without atypia, complex: Code(s): N85.01 - Benign endometrial hyperplasia Status: Acute Assessment and Plan: plan to proceed with D&C hysteroscopy
--- NOTE | 2022-06-06 07:16 | WPDHPUPDATE1 ---
History and Physical Update Update Date/Time: 06/06/22 07:16 History and Physical has been reviewed, including an updated exam of the patient. There are NO changes in the patient's condition. Risks, benefits, and alternatives have been discussed and questions answered. Patient agrees to proceed with procedure.
[2022-06-06] MEDS: LIDOCAINE HCL 1% PF 30 ML VIAL INFILTRATE (07:32)
[2022-06-06] MEDS: KETOROLAC 30 MG/ML VIAL (*BKC) IV PUSH (07:35)
--- NOTE | 2022-06-06 07:39 | P.OP_ITS ---
Procedure Note - Detailed Date of Procedure 06/06/22 Pre-op Diagnosis Complex Hyperplasia without Atypia Post-op Diagnosis Same Procedure Performed D&C hysteroscopy Surgeon Melissa Nava MD Anesthesia MAC and Local Findings Uterus sounds to 8cm and appears grossly normal Description of Procedure The patient was taken to the operating room and placed under anesthesia in the dorsal lithotomy position. She was prepped and draped in the usual sterile fashion. The bivalve speculum was placed in the vagina and the cervix grasped on the anterior lip with a tenaculum. The cervix was injected in each quadrant with 1% lidocaine. The uterus is sounded to 8cm. The cervix is serially dilated to an 8 Hegar. The diagnostic hysteroscope was placed with the above- stated findings. The medium sharp curette is used to curette the endometrium until a good uterine cry was noted in all areas. All instruments are removed and the patient awakened from anesthesia and taken to recovery in stable condition. Sponge, needle, and instrument counts are correct per the OR staff. Estimated Blood Loss 5 Drains No Packing No Pathology Yes (Endometrial curettings) Complications No immediate complications Condition Stable Disposition PACU
[2022-06-06 07:42] VITALS: BP 132/75; PULSE 73; RESP 16; O2SAT 96
[2022-06-06 07:56] VITALS: BP 116/66; PULSE 75; RESP 14; TEMP 36.6; O2SAT 100
[2022-06-06 08:25] VITALS: BP 122/70; PULSE 58; RESP 20
== END 2022-06-06 08:39 | disposition home or self-care (01) ==
PROVIDERS: PCP Family Medicine; Visit Provider Obstetrics & Gynecology Gynecology
PROC: 0U5B8ZZ Destruction of Endometrium, Via Natural or Artificial Opening Endoscopic (ICD-10-PCS; CPT 58563; principal; 2022-06-06 07:30)
DX: N85.01 Benign endometrial hyperplasia (principal); I10 Essential (primary) hypertension; E66.9 Obesity, unspecified; Z68.36 Body mass index [BMI] 36.0-36.9, adult
CPT/HCPCS: 58558; 88305; A9270; J1100; J1885; J2250; J2405; J2704; J3010; J7030; J7120

== ENCOUNTER 2022-11-26 09:28 | Outpatient (CLI) | payer BC, SELFPAY ==
[2022-11-26 09:53] LABS: Hematocrit 40.5 % (37.0-47.0); Hemoglobin 12.6 g/dL (12.0-15.0); Mean Corpuscular HGB Conc 31.1 g/dl (32-36); Mean Corpuscular Hemoglobin 26.1 pg (26-34); Mean Corpuscular Volume 83.9 fl (80-100); Mean Platelet Volume 10.7 fl (7.4-10.4); Platelet Count Result 306 k/mm3 (150-375); Red Blood Count 4.83 M/mm3 (4.2-5.4); Red Cell Distribution Width 14.3 % (11.5-14.5); White Blood Count 6.3 K/mm3 (4.5-10.0)
[2022-11-26 10:39] LABS: Iron 66 ug/dL (37-170)
[2022-11-26 10:49] LABS: Percent Iron Saturation 14 % (20-50)
[2022-11-26 11:15] LABS: Ferritin 7.87 ng/mL (11.1-264)
== END 2022-11-26 09:29 | disposition home or self-care (01) ==
LOC: ANHLAB 09:29
PROVIDERS: PCP Family Medicine; Visit Provider Nurse Practitioner Family
DX: N92.0 Excessive and frequent menstruation with regular cycle (principal)
CPT/HCPCS: 36415; 82728; 83540; 83550; 85027

== ENCOUNTER 2023-02-17 02:26 | Day surgery (SDC) | payer BC, SELFPAY ==
[2023-02-14 15:59] VITALS: BMI 33.0
--- NOTE | 2023-02-16 14:22 | WPDANESEPPF ---
Anes - Initial Pre Proc Eval Procedure: Operation Date: 02/17/23 07:30 Proposed Procedures p Screening Colonoscopy - Austin Miller MD Date/Time: 02/16/23 14:22 Surgeon: Austin Miller MD Pre Op Diagnosis: neoplasm screening Patient Data Age: 52 Gender: F Height: 1.57 m Weight: 82 kg Allergies Allergy/AdvReac Type Severity Reaction Status Date / Time Sulfa (Sulfonamide Allergy Intermediate Rash Verified 02/14/23 16:01 Antibiotics) Home Medications Medication Instructions Recorded Confirmed Type progesterone micronized 200 mg 200 mg PO QHS 05/23/22 02/14/23 History capsule ferrous sulfate 325 mg (65 mg 325 mg PO DAILY #90 tabs 12/14/22 02/14/23 Rx iron) tablet,delayed release lisinopril 10 mg tablet 10 mg PO DAILY #90 tabs 12/14/22 02/14/23 Rx sodium,potassium,mag sulfates 17.5 See Rx Instructions PO .COMPLEX 01/19/23 02/14/23 Rx gram-3.13 gram-1.6 gram oral soln #354 mL (Suprep Bowel Prep Kit) Other studies: Admit Date: ? ? 03/11/2022 Staff Ordering Physician: ? ? Maria G Contreras NP Retrofit Installer: ? ? Roxanna Ruvalcaba RDCS Attending Provider: ? ? Maria G Contreras NP Referring Physician: ? ? Diane MATHIS; Exam Type: ? ? CA echo doppler color flow Study Info Indications ?? ? - arterial sclosis of the aorta Complete two-dimensional, color flow and Doppler transthoracic echocardiogram is performed. Account #: ? ? [id number] Summary ? 1. Complete two-dimensional, color flow and Doppler transthoracic echocardiogram is performed. ? 2. Left ventricular chamber dimension is normal. ? 3. Left ventricular systolic function is normal, estimated at 60-65%. ? 4. The left ventricular diastolic function is normal. ? 5. E/e' 7 is not elevated. ? 6. Left atrial chamber dimension is moderately enlarged. ? 7. There is trace mitral valve regurgitation. ? 8. There is trace tricuspid valve regurgitation. ? 9. Mild pulmonary hypertension, estimated pulmonary arterial systolic pressure is 41 mmHg. Patient hx anesthesia problems: none Family hx anesthesia problems: none Results Review: All pre-operative results and documents have been reviewed as part of the pre-operative evaluation. [facility] Past Medical History Medical History (Updated 02/16/23 @ 14:23 by Jamaal Griffith MD) GERD (gastroesophageal reflux disease) Heavy menses Hypertension Hypochromic microcytic anemia Left atrial enlargement Menorrhagia Obesity Pulmonary hypertension Uterine fibroid Surgical History Surgical History H/O dilation and curettage History of hysteroscopy February of 2022 with pathology showing complex hyperplasia without atypia No pertinent past surgical history Family History Family History Father Asthma Hypertension Hyperlipidemia Acute myocardial infarction Mother Osteoporosis Sibling Asthma Hypertension Social History Social History Smoking status: Never smoker Second hand tobacco smoke exposure: No Alcohol intake: current Drinks per week: 3 Alcohol use details: DRINKS Substance use: never Substance use type: does not use Lack of Transportation: No Lack of Food: Never True Current Housing: I Have Housing Concerned About Future Housing: No Difficulty Paying Gas/Electric Bills: No Difficulty Paying for Meds: No Currently Unemployed: No Education: Associate Degree Difficulty w/ Childcare or Family Care: No Living arrangements: with family Occupation/Education: occupation 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 Gender identity (if verbalized by the patient): Female Spiritual care concerns: No Anes - Eval Final PreProcedure Day of Procedure 02/16/23 14:22 Patient weight: obese Heart: regular rate and rhyth
[2023-02-17 06:23] VITALS: BMI 32.4
[2023-02-17 06:27] VITALS: BP 135/75; PULSE 67; RESP 18; TEMP 36.4; O2SAT 67
[2023-02-17] MEDS: LACTATED RINGERS 1,000 ML 150 ML IV CONT (06:37)
[2023-02-17] MEDS: SIMETHICONE ORAL SUSPENSION 20 MG/0.3 ML 30 ML BOTTLE 0.6 ML IRRIGATION (07:42)
[2023-02-17 07:58] VITALS: BP 109/67; PULSE 70; RESP 18; O2SAT 100
--- NOTE | 2023-02-17 08:00 | PM.HPGS ---
History of Present Illness History of Present Illness Consent: Risks, benefits, and alternatives have been discussed and questions answered. Patient agrees to proceed with procedure. Chief complaint: neoplasm screening Narrative: Nicky Jacome is a 52 year old female Presents for screening colonoscopy. Patient's current weight appetite and bowel movements are normal. Patient denies abdominal pain. She has had no bleeding. Family history is noncontributory. Review of Systems Review of Systems: Review of systems noncontributory [facility] Past Medical History Medical History (Updated 02/17/23 @ 08:01 by Austin Miller MD) GERD (gastroesophageal reflux disease) Heavy menses Hypertension Hypochromic microcytic anemia Left atrial enlargement Menorrhagia Obesity Pulmonary hypertension Uterine fibroid Surgical History Surgical History H/O dilation and curettage History of hysteroscopy February of 2022 with pathology showing complex hyperplasia without atypia No pertinent past surgical history Family History Family History Father Asthma Hypertension Hyperlipidemia Acute myocardial infarction Mother Osteoporosis Sibling Asthma Hypertension Social History Social History Smoking status: Never smoker Second hand tobacco smoke exposure: No Alcohol intake: current Drinks per week: 3 Alcohol use details: DRINKS Substance use: never Substance use type: does not use Lack of Transportation: No Lack of Food: Never True Current Housing: I Have Housing Concerned About Future Housing: No Difficulty Paying Gas/Electric Bills: No Difficulty Paying for Meds: No Currently Unemployed: No Education: Associate Degree Difficulty w/ Childcare or Family Care: No Living arrangements: with family Occupation/Education: 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 identity (if verbalized by the patient): Female Spiritual care concerns: No Meds Home Medications and Allergies Home Medications Medication Instructions Recorded Confirmed Type progesterone micronized 200 mg 200 mg PO QHS 05/23/22 02/14/23 History capsule ferrous sulfate 325 mg (65 mg 325 mg PO DAILY #90 tabs 12/14/22 02/14/23 Rx iron) tablet,delayed release lisinopril 10 mg tablet 10 mg PO DAILY #90 tabs 12/14/22 02/14/23 Rx sodium,potassium,mag sulfates 17.5 See Rx Instructions PO .COMPLEX 01/19/23 02/14/23 Rx gram-3.13 gram-1.6 gram oral soln #354 mL (Suprep Bowel Prep Kit) Allergies Allergy/AdvReac Type Severity Reaction Status Date / Time Sulfa (Sulfonamide Allergy Intermediate Rash Verified 02/14/23 16:01 Antibiotics) Vital Signs Vital Signs - 24 hr 02/17/23 06:27 Temperature 97.5 F L Pulse Rate 67 Respiratory Rate 18 Blood Pressure 135/75 Pulse Oximetry 67 L Oxygen Delivery Room Air Exam Narrative: physical exam reveals patient to be alert. Vital signs stable. HEENT exam is unremarkable. Patient is anicteric. Lungs are clear to auscultation and percussion. Heart is without murmur or extra sounds. Abdomen bowel sounds are present soft nontender with no organomegaly. Digital external rectal exam is normal. Assessment and Plan Assessment and plan (1) Encounter for screening colonoscopy: Code(s): Z12.11 - Encounter for screening for malignant neoplasm of colon Status: Acute Assessment and Plan: Patient presents for screening colonoscopy. Appears to be at average risk for colon polyps. Further recommendations may be given after endoscopy.
[2023-02-17 08:08] VITALS: BP 117/71; PULSE 67; RESP 14; O2SAT 100
[2023-02-17 08:18] VITALS: BP 140/74; PULSE 65; RESP 13; O2SAT 100
== END 2023-02-17 08:22 | disposition home or self-care (01) ==
PROVIDERS: PCP Family Medicine; Visit Provider Internal Medicine Gastroenterology
PROC: 0DJD8ZZ Inspection of Lower Intestinal Tract, Via Natural or Artificial Opening Endoscopic (ICD-10-PCS; CPT 45378; principal; 2023-02-17 07:30)
DX: Z12.11 Encounter for screening for malignant neoplasm of colon (principal); D12.5 Benign neoplasm of sigmoid colon; K64.8 Other hemorrhoids; I10 Essential (primary) hypertension; I27.20 Pulmonary hypertension, unspecified; D50.9 Iron deficiency anemia, unspecified; E66.9 Obesity, unspecified; Z68.32 Body mass index [BMI] 32.0-32.9, adult
CPT/HCPCS: 45385; 88305; J2704; J7120

== ENCOUNTER → 2023-04-03 13:59 | Outpatient (CLI) | payer BC, SELFPAY ==
--- NOTE | ~2023-04-03 | MM_ITS ---
EXAMINATION: MM screening kerri BI w annie HISTORY: Screening mammogram TECHNIQUE: Craniocaudal and mediolateral oblique 3-D tomosynthesis images were obtained and synthetic 2-D images were generated. CAD analysis was submitted and interpreted. COMPARISON: No prior mammogram is available for comparison at this institution. BREAST PARENCHYMAL COMPOSITION: There are scattered areas of fibroglandular density. FINDINGS: Circumscribed 4.5 x 5.3 mm opacity in the mid outer right breast, likely a benign lymph nod e. There is no evidence of suspicious mass, calcification, or architectural distortion to suggest mal ignancy in either breast.. IMPRESSION: 1. Benign finding. No mammographic evidence of malignancy. 2. Recommend routine screening mammography in one year. BI-RADS Category 2: Benign finding(s). Reviewed, dictated and finalized at location A.
== END ==
PROVIDERS: PCP Obstetrics & Gynecology Gynecology; Visit Provider Obstetrics & Gynecology Gynecology
DX: Z12.31 Encounter for screening mammogram for malignant neoplasm of breast (principal)
CPT/HCPCS: 77063; 77067

== ENCOUNTER 2023-06-17 10:05 | Outpatient (CLI) | payer BC, SELFPAY ==
[2023-06-17 10:26] LABS: Basophils Percent Auto 0.7 % (0.2-1.2); Eosinophils Absolute Auto 0.1 K/mm3 (0-0.3); Eosinophils Percent Auto 1.6 % (0-4.4); Hematocrit 44.1 % (37.0-47.0); Hemoglobin 13.8 g/dL (12.0-15.0); Immature Granulocyte Absolute 0.01 K/mm3 (0.00-0.031); Immature Granulocyte Percent A 0.2 % (0-0.5); Lymphocytes Absolute Auto 1.35 K/mm3 (0.9-3.2); Lymphocytes Percent Auto 23.6 % (18.3-44.2); Mean Corpuscular HGB Conc 31.3 g/dl (32-36); Mean Corpuscular Hemoglobin 28.3 pg (26-34); Mean Corpuscular Volume 90.4 fl (80-100); Mean Platelet Volume 10.6 fl (7.4-10.4); Monocytes Absolute Auto 0.5 K/mm3 (0.1-0.6); Monocytes Percent Auto 9.1 % (2.6-8.5); Neutrophils Absolute Auto 3.7 K/mm3 (1.3-6.7); Neutrophils Percent Auto 64.8 % (45.5-73.1); Platelet Count Result 292 k/mm3 (150-375); Red Blood Count 4.88 M/mm3 (4.2-5.4); Red Cell Distribution Width 13.7 % (11.5-14.5); White Blood Count 5.7 K/mm3 (4.5-10.0)
[2023-06-17 10:39] LABS: Alanine Aminotransferase 18 U/L (6-35); Albumin Level 4.4 g/dL (3.5-5.1); Alkaline Phosphatase 69 U/L (38-126); Anion Gap 3 mmol/L (8-16); Aspartate Amino Transferase 22 U/L (14-36); Bilirubin,Total 1.2 mg/dL (0.2-1.3); Blood Urea Nitrogen 15 mg/dL (7-17); Calcium 8.7 mg/dL (8.4-10.2); Carbon Dioxide 32 mmol/L (22-30); Chloride 103 mmol/L (98-107); Estimated Glomerular Filt Rate > 60; Glucose 152 mg/dL (65-110); Potassium 4.5 mmol/L (3.4-5.0); Sodium 138 mmol/L (137-145)
[2023-06-17 11:05] LABS: Thyroid Stimulating Hormone 0.802 uIU/mL (0.465-4.680)
[2023-06-17 11:22] LABS: Vitamin D 25 Hydroxy 27.5 ng/mL
[2023-06-17 12:51] LABS: Iron 107 ug/dL (37-170)
[2023-06-17 13:27] LABS: Percent Iron Saturation 27 % (20-50)
== END 2023-06-17 10:06 | disposition home or self-care (01) ==
LOC: ANHLAB 10:07
PROVIDERS: PCP Obstetrics & Gynecology Gynecology; Visit Provider Nurse Practitioner Family
DX: E55.9 Vitamin D deficiency, unspecified (principal); N94.6 Dysmenorrhea, unspecified; K21.9 Gastro-esophageal reflux disease without esophagitis; I10 Essential (primary) hypertension
CPT/HCPCS: 36415; 80053; 82306; 82728; 83540; 83550; 84443; 85025

== ENCOUNTER 2023-07-15 09:02 | Outpatient (CLI) | payer BC, SELFPAY ==
[2023-07-15 10:58] LABS: Hemoglobin A1C 5.2 % (<5.7)
== END 2023-07-15 09:03 | disposition home or self-care (01) ==
PROVIDERS: PCP Family Medicine; Visit Provider Nurse Practitioner Family
DX: R73.09 Other abnormal glucose (principal)
CPT/HCPCS: 36415; 83036

== ENCOUNTER 2023-12-16 10:14 | Outpatient (CLI) | payer BC, SELFPAY ==
[2023-12-16 10:37] LABS: Hematocrit 42.6 % (37.0-47.0); Hemoglobin 13.1 g/dL (12.0-15.0); Mean Corpuscular HGB Conc 30.8 g/dl (32-36); Mean Corpuscular Hemoglobin 27.5 pg (26-34); Mean Corpuscular Volume 89.5 fl (80-100); Mean Platelet Volume 10.4 fl (7.4-10.4); Platelet Count Result 312 k/mm3 (150-375); Red Blood Count 4.76 M/mm3 (4.2-5.4); Red Cell Distribution Width 13.1 % (11.5-14.5); White Blood Count 6.3 K/mm3 (4.5-10.0)
[2023-12-16 11:26] LABS: Iron 97 ug/dL (37-170)
[2023-12-16 11:35] LABS: Percent Iron Saturation 25 % (20-50)
== END 2023-12-16 10:15 | disposition home or self-care (01) ==
LOC: ANHLAB 10:15
PROVIDERS: PCP Family Medicine; Visit Provider Nurse Practitioner Family
DX: E61.1 Iron deficiency (principal)
CPT/HCPCS: 36415; 83540; 83550; 85027

== ENCOUNTER 2024-04-15 03:48 | Day surgery (SDC) | payer BC, SELFPAY ==
--- NOTE | 2024-04-09 14:53 | SUR.PREOP ---
Report to the Outpatient Waiting Room, entrance under the green pavilion located off [facility], at time 0830 on date 04/15/24. Planned Procedure Time: 1030. Time changes happen often and if your time is changed the preop area will call you the afternoon before. - You and your visitor will be asked to self-screen and do not enter if you have any COVID symptoms. - A mask is optional within the hospital at this time. Patients may have clear liquids (water, carbonated beverages, clear teas, apple juice) until 3 hours prior to surgery with a maximum of 20 ounces. - NO CLEAR LIQUIDS AFTER 0730 - No food from midnight until time of surgery - Infants may have breast milk until 4 hours before surgery, formula 6 hours prior to surgery. - Children will be allowed to drink immediately following surgery. If applicable, please bring a bottle or sippy cup to assist with drinking. Juice, water, soda, and popsicles are readily available. For infants on formula, please bring formula the day of surgery. Pacifiers are allowed. Take the following medications with a SIP of water the morning of surgery: N/A DO NOT STOP ANY OF YOUR OTHER PRESCRIPTION MEDICATIONS PRIOR TO SURGERY ?EXCEPT THE FOLLOWING Medications to discontinue per physician Date to take last dose Please no make-up, nail croatian, hairspray, perfume, deodorant, or body powder the day of surgery. No jewelry (including any body piercings) or valuables the day of surgery, leave them at home. Please take a shower or bath the night before, or the morning of, surgery with an antibacterial soap. Wear comfortable, loose fitting clothing. Children are encouraged to wear pajamas. - Jewelry must be removed prior to entering the operating room. Rings and piercings that are not removed may be cut off. - The hospital will not accept responsibility for valuables. - Please leave all valuables, including medications, at home the day of surgery. If you are going home after surgery, a licensed driver merchandiser must drive you home. - NO public transportation without another adult if you receive anesthesia. - We recommend that an adult stay with you for 24 hours following discharge. - We also recommend that you do not drive, make important decision, drink alcoholic beverages, or take any drugs that were not prescribed by your health care provider for at least 24 hours after your discharge time. For Pediatric surgeries, we recommend two adults accompany the child home. Follow any additional instructions given to you from your surgeon. If you or anyone in your household have experienced Covid symptoms in the past week, please notify your surgeon or the nurse liaison at the phone number below for possible testing. Telephone instructions given to MICKIE NGUYEN and asked if any additional questions and then verbalized understanding. Patient advised to call surgeon office or pre surgery nurse liaison [phone] if any additional questions.
[2024-04-09 15:10] VITALS: BMI 35.1
--- NOTE | 2024-04-15 07:35 | WPDHPUPDATE1 ---
History and Physical Update Update Date/Time: 04/15/24 07:35 History and Physical has been reviewed, including an updated exam of the patient. There are NO changes in the patient's condition. Risks, benefits, and alternatives have been discussed and questions answered. Patient agrees to proceed with procedure.
--- NOTE | 2024-04-15 07:35 | PM.HPGS ---
History of Present Illness History of Present Illness Consent: Risks, benefits, and alternatives have been discussed and questions answered. Patient agrees to proceed with procedure. Chief complaint: Menorrhagia Narrative: Nicky Jacome is a 53 year old female with 4 months of heavy cycles with clotting. 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 She has been on Prometrium with the irregular cycles has been unsure about when to take a medication so has not been faithful each month. It was recommended to proceed with D&C hysteroscopy to further evaluate. Risks of infection, bleeding, perforation, and possible pathology are discussed. Patient voices understanding and agrees to proceed. Review of Systems Review of Systems: not repeated day of surgery; patient states no changes in status ON LICENSE OF [facility] Past Medical History Medical History (Updated 04/15/24 @ 07:38 by Melissa Nava MD) BMI over 35 GERD (gastroesophageal reflux disease) Hypertension Left atrial enlargement (normal spontaneous vaginal delivery) x2 Pulmonary hypertension Uterine fibroid Surgical History Surgical History (Updated 04/15/24 @ 07:38 by Melissa Nava MD) H/O dilation and curettage 2021 History of hysteroscopy February of 2022 with pathology showing complex hyperplasia without atypia No pertinent past surgical history Family History Family History Father Asthma Hypertension Hyperlipidemia Acute myocardial infarction Mother Osteoporosis Sibling Asthma Hypertension Social History Social History Smoking status: Never smoker Second hand tobacco smoke exposure: No Alcohol intake: current Drinks per week: 2 Alcohol use details: DRINKS Substance use: never Substance use type: does not use Lack of Transportation: No Lack of Food: Never True Current Housing: I Have Housing Concerned About Future Housing: No Difficulty Paying Gas/Electric Bills: No Difficulty Paying for Meds: No Currently Unemployed: No Education: Associate Degree Difficulty w/ Childcare or Family Care: No Living arrangements: with family Occupation/Education: occupation 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 Gender identity (if verbalized by the patient): Female Spiritual care concerns: No Meds Home Medications and Allergies Home Medications Medication Instructions Recorded Confirmed Type progesterone micronized 200 mg 200 mg PO QHS 05/23/22 04/09/24 History capsule lisinopril 10 mg tablet 10 mg PO HS 04/09/24 04/09/24 History Allergies Allergy/AdvReac Type Severity Reaction Status Date / Time Sulfa (Sulfonamide Allergy Intermediate Rash Verified 04/09/24 14:42 Antibiotics) Exam Const: General: healthy appearing and alert Orientation/consciousness: patient oriented x3 Resp: Effort & Inspection: normal respiratory effort GI: GI Palp: Yes Soft to palpation, No Tenderness to palpation present (GI) and No Palpable mass present : External Female Exam: normal external appearance Speculum Exam - Vagina: normal appearance of the vagina and normal vaginal discharge Speculum Exam - Cervix: normal appearance of the cervix Bimanual exam- vagina & uterus: uterine size normal and consistency normal Bimanual Exam- Adnexa, other: normal adnexae and No adnexal tenderness Neuro: General: patient oriented x3 Assessment and Plan Assessment and plan (1) Menorrhagia: Code(s): N92.0 - Excessive and frequent menstruation with regular cycle Status: Acute Assessment and Plan: plan to proceed with D&C hysteroscopy
[2024-04-15 09:00] VITALS: BP 136/76; PULSE 69; RESP 14; TEMP 36.8; O2SAT 96
[2024-04-15] MEDS: LACTATED RINGERS 1,000 ML 30 ML IV CONT (09:00)
[2024-04-15] MEDS: ACETAMINOPHEN 500 MG TABLET 1000 MG PO (09:30)
--- NOTE | 2024-04-15 09:35 | WPDANESEPPF ---
Anes - Initial Pre Proc Eval Procedure: Operation Date: 04/15/24 10:30 Proposed Procedures p Hysteroscopy Dilation and Curettage - Melissa Nava MD Date/Time: 04/15/24 09:35 Surgeon: Melissa Nava MD Pre Op Diagnosis: Menorrhagia Patient Data Age: 53 Gender: F Height: 1.6 m Weight: 90 kg Allergies Allergy/AdvReac Type Severity Reaction Status Date / Time Sulfa (Sulfonamide Allergy Intermediate Rash Verified 04/15/24 09:28 Antibiotics) Home Medications Medication Instructions Recorded Confirmed Type progesterone micronized 200 mg 200 mg PO QHS 05/23/22 04/15/24 History capsule lisinopril 10 mg tablet 10 mg PO HS 04/09/24 04/15/24 History Patient hx anesthesia problems: none Family hx anesthesia problems: none Results Review: All pre-operative results and documents have been reviewed as part of the pre-operative evaluation. [facility] Past Medical History Medical History BMI over 35 GERD (gastroesophageal reflux disease) Hypertension Left atrial enlargement (normal spontaneous vaginal delivery) x2 Pulmonary hypertension Uterine fibroid Surgical History Surgical History H/O dilation and curettage 2021 History of hysteroscopy February of 2022 with pathology showing complex hyperplasia without atypia No pertinent past surgical history Family History Family History Father Asthma Hypertension Hyperlipidemia Acute myocardial infarction Mother Osteoporosis Sibling Asthma Hypertension Social History Social History Smoking status: Never smoker Second hand tobacco smoke exposure: No Alcohol intake: current Drinks per week: 2 Alcohol use details: DRINKS Substance use: never Substance use type: does not use Lack of Transportation: No Lack of Food: Never True Current Housing: I Have Housing Concerned About Future Housing: No Difficulty Paying Gas/Electric Bills: No Difficulty Paying for Meds: No Currently Unemployed: No Education: Associate Degree Difficulty w/ Childcare or Family Care: No Living arrangements: with family Occupation/Education: occupation 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 Gender identity (if verbalized by the patient): Female Spiritual care concerns: No Anes - Eval Final PreProcedure Day of Procedure 04/15/24 09:35 Patient weight: obese Heart: regular rate and rhythm Lungs: clear to auscultation Airway: Mallampati scale and special considerations (Missing many teeth, neema upper R and lower L aspect. None loose. ) Neurological: alert and oriented Last oral intake: >/= 8 hours ASA classification: II Emergent: no Anesthetic plan: proceed Anesthesia type and monitoring: general GIVS and standard monitoring Results Review: All pre-operative results and documents have been reviewed as part of the pre-operative evaluation. Informed Consent: The patient's anesthetic plan and its attendant risks and benefits were discussed with the patient/family/POA. Questions were solicited and answers provided to the satisfaction of the patient/family/POA.
[2024-04-15 09:40] LABS: BEDSIDEPREGUCG Negative
[2024-04-15] MEDS: KETOROLAC 15 MG/ML VIAL (*BKC) IV PUSH (10:02)
--- NOTE | 2024-04-15 10:07 | W.PM.PROC2 ---
Procedure Note - Detailed Date of Procedure 04/15/24 Pre-op Diagnosis Menorrhagia with history complex hyperplasia without atypia Post-op Diagnosis Same Procedure Performed D&C hysteroscopy Surgeon Melissa Nava MD Anesthesia MAC Findings uterus sounds to 7cm thickened anterior left wall Description of Procedure The patient is taken to the operating room and placed under anesthesia in the dorsal lithotomy position. She was prepped and draped in the usual sterile fashion. [place] speculum was placed in vagina and the cervix grasped the anterior lip with a tenaculum. The uterus is sounded to 7cm. The diagnostic hysteroscope was placed and with no discrete lesions it is removed. The sharp OO curette is used to curette the endometrium until a good uterine cry was noted in all areas with particular attention paid to the anterior and left side nguyen. All instruments were then removed. Sponge, needle, and instrument counts are correct per the OR staff. The patient was awakened from anesthesia and taken to recovery in stable condition. Estimated Blood Loss 5 Drains No Packing No Pathology Yes ( Endometrial curetting) Complications No immediate complications Condition Stable Disposition PACU
[2024-04-15 10:11] VITALS: BP 134/65; PULSE 74; RESP 14; O2SAT 98
[2024-04-15 10:40] VITALS: BP 117/71; PULSE 63; RESP 16
[2024-04-15 10:55] VITALS: BP 118/72; PULSE 68; RESP 18
== END 2024-04-15 11:05 | disposition home or self-care (01) ==
PROVIDERS: PCP Family Medicine; Visit Provider Obstetrics & Gynecology Gynecology
PROC: 0U5B8ZZ Destruction of Endometrium, Via Natural or Artificial Opening Endoscopic (ICD-10-PCS; CPT 58563; principal; 2024-04-15 10:30)
DX: N92.0 Excessive and frequent menstruation with regular cycle (principal); I10 Essential (primary) hypertension; K21.9 Gastro-esophageal reflux disease without esophagitis; E66.9 Obesity, unspecified; Z68.35 Body mass index [BMI] 35.0-35.9, adult; Z98.890 Other specified postprocedural states; Z82.49 Family history of ischemic heart disease and other diseases of the circulatory system
CPT/HCPCS: 58558; 88305; A9270; J1885; J2250; J2704; J3010; J7120

== ENCOUNTER 2024-06-14 08:18 | Outpatient (CLI) | payer BC, SELFPAY ==
--- NOTE | ~2024-06-14 | US_ITS ---
EXAMINATION: US carotid duplex BI DATE: 06/14/2024 08:35 INDICATION: Headache, unspecified. TECHNIQUE: Grayscale, color Doppler, and pulsed Doppler images of the cervical carotid arteries were obtained. The degree of vessel stenosis is placed in one of the following categories: normal, <50%, 5 0-69%, >=70% but less than near-occlusion, near-occlusion, or total occlusion. Note that percent sten osis relative to normal distal artery lumen diameter is indirectly measured from velocity measurement s as described by Reji, et al. Radiology 2003; 229:340-346. COMPARISON: None. FINDINGS: RIGHT: The right common carotid artery (CCA) peak systolic velocity (PSV) is 105 cm/s. The right internal ca rotid artery (ICA) PSV is 98 cm/s. The right ICA end-diastolic velocity (EDV) is 36 cm/s. The right I CA/CCA PSV ratio is 0.9. Grayscale and color Doppler images yield an estimate of <50% diameter reduct ion from plaque in the ICA. There is antegrade flow in the right vertebral artery. LEFT: The left CCA PSV is 136 cm/s. The left ICA PSV is 153 cm/s. The left ICA EDV is 55 cm/s. The left ICA /CCA PSV ratio is 1.1. Grayscale and color Doppler images yield an estimate of <50% diameter reductio n from plaque in the ICA. There is antegrade flow in the left vertebral artery. IMPRESSION: 1. <50% stenosis in the right internal carotid artery. 2. <50% stenosis in the left internal carotid artery. Reviewed, dictated and finalized at location A.
== END 2024-06-14 08:19 | disposition home or self-care (01) ==
LOC: GOSHIMG 08:19
PROVIDERS: PCP Family Medicine; Visit Provider Nurse Practitioner Family
DX: I10 Essential (primary) hypertension (principal); I70.0 Atherosclerosis of aorta; R51.9 Headache, unspecified; I65.23 Occlusion and stenosis of bilateral carotid arteries
CPT/HCPCS: 93880

== ENCOUNTER 2024-06-17 13:37 | Outpatient (CLI) | payer BC, SELFPAY ==
--- NOTE | ~2024-06-17 | MM_ITS ---
EXAMINATION: MM screening [facility] BI w annie HISTORY: Screening TECHNIQUE: Craniocaudal and mediolateral oblique 3-D tomosynthesis images were obtained and synthetic 2-D images were generated. CAD analysis was submitted and interpreted. COMPARISON: 04/03/2023 BREAST PARENCHYMAL COMPOSITION: Not dense: There are scattered areas of fibroglandular density. FINDINGS: Stable breast asymmetries. There is no evidence of suspicious mass, calcification, or archi tectural distortion to suggest malignancy in either breast. There has been no suspicious interval brenna nge. IMPRESSION: 1. No mammographic evidence of malignancy. 2. Recommend routine screening mammography in one year. BI-RADS Category 1: Negative Reviewed, dictated and finalized at location B.
== END 2024-06-17 13:38 | disposition home or self-care (01) ==
LOC: MICIMG 13:37
PROVIDERS: PCP Family Medicine; Visit Provider Obstetrics & Gynecology Gynecology
DX: Z12.31 Encounter for screening mammogram for malignant neoplasm of breast (principal)
CPT/HCPCS: 77063; 77067

== ENCOUNTER 2024-07-11 12:41 | Outpatient (CLI) | payer BC, SELFPAY ==
--- NOTE | 2024-07-11 12:48 | ECHO_ITS ---
Patient Info Name: Nicky Jacome Age: 54 years : 1970 Gender: Female Ht: 62 in Wt: 195 lbs BSA: 2.01 m2 HR: 69 bpm BP: 141 / 83 mmHg Technical Quality: Fair Exam Date: 07/11/2024 1:05 PM Exam Location: Echo Lab Patient Status: Outpatient Admit Date: 07/11/2024 Staff Ordering Physician: Henrietta Carr Hip Hop Dance Instructor: Dinora Ramirez RDCS Attending Provider: Henrietta Carr Referring Physician: Bruno BERRY; Exam Type: CA echo doppler color flow Study Info Indications I27.2 - Other secondary pulmonary hypertension I51.7 - Cardiomegaly Complete two-dimensional, color flow and Doppler transthoracic echocardiogram is performed. Summary 1. Complete two-dimensional, color flow and Doppler transthoracic echocardiogram is performed. 2. Left ventricular chamber dimension is normal. 3. Left ventricular systolic function is normal, estimated at 60-65%. 4. The left ventricular diastolic function is normal. 5. E/e' 7 is not elevated. 6. There is mild tricuspid valve regurgitation. 7. No pulmonary hypertension, estimated pulmonary arterial systolic pressure is 29 mmHg. Left Ventricle E/e' 7 is not elevated. Left ventricular chamber dimension is normal. Left ventricular systolic function is normal, estimated at 60-65%. The left ventricular diastolic function is normal. Right Ventricle Right ventricular systolic function is normal and with normal TAPSE 3.2 cm. Right ventricular chamber dimension is normal. Left Atria Left atrial chamber dimension is normal. Right Atria Right atrial chamber dimension is normal. Aortic Valve The aortic valve is trileaflet. There is no aortic valve stenosis. There is no aortic valve regurgitation. Pulmonic Valve There is no pulmonic regurgitation. Mitral Valve There is no mitral valve stenosis. There is no mitral valve regurgitation. Tricuspid Valve There is mild tricuspid valve regurgitation. No pulmonary hypertension, estimated pulmonary arterial systolic pressure is 29 mmHg. Pericardium/Pleural There is no pericardial effusion. Inferior Vena Cava Normal inferior vena cava with >50% collapse upon inspiration consistent with normal right atrial pressure, 5 mmHg. Aorta The aortic root size at the sinus of Valsalva is normal. Left Ventricular Outflow Tract Name Value Normal LVOT 2D LVOT Diameter 1.9 cm LVOT Doppler LVOT Peak Gradient 6 mmHg LVOT Mean Gradient 3 mmHg LVOT VTI 25 cm LVOT VTI/AV VTI Ratio 1.0 LVOT Stroke Volume 71 ml LVOT CO 4.1 l/min LVOT CI 2.1 l/min/m2 Pulmonic Valve Name Value Normal PV Doppler PV Peak Gradient 3 mmHg Mitral Valve Name Value Normal MV Doppler MV Decel [place] 412 cm/s2 MV PHT 63 ms MV Area (PHT) 3.5 cm2 4.0-5.0 MV Diastolic Function MV E Peak Velocity 89 cm/s MV A Peak Velocity 72 cm/s MV E/A 1.2 MV Decel Time 216 ms Tricuspid Valve Name Value Normal TV Regurgitation Doppler TR Peak Velocity 244 cm/s TR Peak Gradient 24 mmHg Estimated PAP/RSVP RA Pressure 5 mmHg <=5 PA Systolic Pressure 29 mmHg <36 RV Systolic Pressure 29 mmHg <36 Aorta Name Value Normal Ascending Aorta Ao Root Diameter (MM) 2.1 cm Ao Root Diam Index (MM) 1.0 cm/m2 Aortic Valve Name Value Normal AV Doppler AV Peak Velocity 125 cm/s AV Peak Gradient 6 mmHg AV Mean Gradient 3 mmHg AV VTI 25 cm AV Area (Cont Eq VTI) 2.8 cm2 >=3.0 AV Area (Cont Eq Demarco) 2.7 cm2 AV Regurgitation 2D LVOT Area 2.8 cm2 Ventricles Name Value Normal LV Dimensions 2D/MM IVS Diastolic Thickness (2D) 0.8 cm 0.6-1.0 IVS Diastole Thickness (MM) 0.6 cm 0.6-0.9 LVID Diastole (2D) 4.4 cm 3.8-5.2 LVID Diastole (MM) 5.4 cm 3.8-5.2 LVIW Diastolic Thickness (2D) 0.8 cm 0.6-0.9 LVIW Diastolic Thickness (MM) 0.8 cm 0.6-0.9 LVID Systole (2D) 2.7 cm 2.2-3.5 LVID Systole (MM) 3.5 cm 2.2-3.5 LVOT Diameter 1.9 cm LV Mass (2D Cubed) 116.27 g 67.00-162.00 LV Mass Index (2D Cubed) 58 g/m2 43-95 Relative Wall Thickness (2D) 0.38 LV Mass (MM Cubed) 137.69 g 67.00-162.00 LV Mass Index (MM Cubed) 69 g/m2 43-95 Relative Wall Thickness (MM) 0.31 LV Fractional Shortening/Ejection Fraction 2D/MM LV Fractional Shortening (2D) 37 % 27-45 LV Fractional Shortening (MM) 34 % 27-45 LV EF (MM Teicholz) 62 % 54-74 LV EF (2D Teicholz) 68 % 54-74 LV Diastolic Volume (4C MOD) 71 ml LV EF (4C MOD) 76 % LV Diastolic Volume (2C MOD) 45 ml LV EF (2C MOD) 65 % LV Diastolic Volume (BP MOD) 61 ml 46-106 LV Diastolic Volume Index (BP MOD) 30 ml/m2 29-61 LV Systolic Volume (BP MOD) 18 ml 14-42 LV Systolic Volume Index (BP MOD) 9 ml/m2 8-24 LV EF (BP MOD) 71 % 54-74 LV Diastolic Length (4C) 7.7 cm LV Systolic Length (4C) 6.4 cm LV Stroke Volume (4C MOD) 54 ml Atria Name Value Normal LA Dimensions LA Dimension (MM) 3.3 cm 2.7-3.8 LA Volume (4C A-L) 54 ml LA Volume (BP A-L) 48 ml RA Dimensions RA Area (4C) 14.3 cm2 <=18.0 Report Signatures
== END 2024-07-11 12:42 | disposition home or self-care (01) ==
LOC: ANHCARD 12:42
PROVIDERS: PCP Family Medicine; Visit Provider Nurse Practitioner Family
DX: I27.20 Pulmonary hypertension, unspecified (principal); I51.7 Cardiomegaly
CPT/HCPCS: 93306

== ENCOUNTER 2025-03-01 10:15 | Emergency (ER) | payer BC, SELFPAY ==
--- NOTE | ~2025-03-01 | XR_ITS ---
EXAMINATION: XR chest 2V DATE: 03/01/2025 11:04 INDICATION: 2 weeks of cough TECHNIQUE: PA and lateral views of the chest were obtained. COMPARISON: Chest radiograph dated 01/06/2022 FINDINGS: The lungs remain clear with no focal airspace opacities, pulmonary edema, pleural effusion or pneumot horax. Arch is normal with small right pericardial fat pad. Visualized bones and soft tissues are unr emarkable. IMPRESSION: 1. No acute cardiopulmonary disease. Reviewed, dictated and finalized at location A.
[2025-03-01 10:29] VITALS: BP 153/82; PULSE 76; RESP 16; TEMP 36.5; O2SAT 98
--- NOTE | 2025-03-01 15:42 | ED.URI ---
HPI - URI/Sore Throat General Chief Complaint: Upper Respiratory Infection Stated Complaint: COUGH Time Seen by Provider: 03/01/25 10:40 Source: patient and RN notes reviewed Mode of arrival: ambulatory Limitations: no limitations History of Present Illness HPI Narrative: 54-year-old female presents Express Care complaining of dry hacking cough for 2 weeks. Patient denies any upper respiratory symptoms, fevers, body aches, chills, chest pain, shortness of breath. Patient has tried [id number] cough medicine without any relief. Patient states the cough is worse at night when she is lying flat. Patient denies any significant past medical history. Related Data Home Medications ?Medication ?Instructions ?Recorded ?Confirmed ?Last Taken ?Type progesterone micronized 200 mg 200 mg PO QHS 05/23/22 04/15/24 Unknown History capsule Allergies Allergy/AdvReac Type Severity Reaction Status Date / Time Sulfa (Sulfonamide Allergy Intermediate Rash Verified 04/15/24 09:28 Antibiotics) Review of Systems Review of Systems: CONSTITUTIONAL: Denies fever, chills, body aches, or sweats. EYES: Denies visual changes, redness, or discharge. ENT: Negative for for rhinorrhea, congestion, sore throat, or otalgia. CARDIOVASCULAR: Denies chest pain, palpitations, or edema. RESPIRATORY: Positive for cough. Negative for dyspnea or wheezing. GASTROINTESTINAL: Denies abdominal pain, nausea, vomiting, or diarrhea. GENITOURINARY: Denies dysuria or hematuria. SKIN: Denies rash or itching. MUSCULOSKELETAL: Denies back pain, joint pain, or myalgia. NEUROLOGIC: Denies headache, numbness, or weakness. PSYCHIATRIC: Denies anxiety or depression. All other systems reviewed are negative, except as documented in HPI. 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 H/O dilation and curettage 2021 No pertinent past surgical history Family History Family History Father Asthma Hypertension Hyperlipidemia Acute myocardial infarction Mother Osteoporosis Sibling Asthma Hypertension Social History Social History Smoking status: Never smoker Second hand tobacco smoke exposure: No Alcohol intake: current Drinks per week: 2 Alcohol use details: DRINKS Substance use: never Substance use type: does not use Lack of Transportation: No Lack of Food: Never True Current Housing: I Have Housing Concerned About Future Housing: No Difficulty Paying Gas/Electric Bills: No Difficulty Paying for Meds: No Currently Unemployed: No Education: Associate Degree Difficulty w/ Childcare or Family Care: No Living arrangements: with family Occupation/Education: occupation 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 Gender identity (if verbalized by the patient): Female Spiritual care concerns: No Comments At the time of my signature, I reviewed and agree with the nursing past medical, surgical, social, and family history. There is no relevant family history pertinent to the patient complaint. Exam Narrative: GENERAL: This is a well-nourished, well-developed adult, in no apparent distress. They are non ill-appearing, nontoxic appearing. HEAD: normocephalic, atraumatic. EYES: Sclera clear/white. Vision is grossly intact. Conjunctiva normal bilaterally. Extraocular movements intact. EARS: External ears normal, auditory canals clear and without drainage, TMs without erythema or perforation. Hearing grossly intact. NOSE: External nose normal with no obvious nasal discharge, nasal turbinates erythematous, no rhinorrhea. THROAT: Mucous membranes moist, posterior pharynx erythematous without exudate. Uvula is midline. Postnasal drip present. NECK: Neck supple, non-tender without lymphadenopathy, masses or thyromegaly. CARDIOVASCULAR: Regular rate and rhythm without murmurs, gallops, or rubs. RESPIRATORY: Clear to auscultation. Breath sounds equal bilaterally. No wheezes, rales, or rhonchi. Respiratory rate normal, respiratory effort nonlabored, no respiratory distress SKIN: warm, Dry, intact with no suspicious lesions or rash, good texture and turgor. NEURO: awake, alert, and oriented to person, place and time. There were no obvious focal neurologic abnormalities. EXTREMITIES: No joint tenderness, effusion, or edema noted. BACK: Nontender without deformity. Course Course Emergency Course: Portions of this record may have been created with voice recognition software Level of Care: Express Care Visit Vital Signs Vital signs: Vital Signs Temperature 97.7 F 03/01/25 10:29 Pulse Rate 76 03/01/25 10:29 Respiratory Rate 16 03/01/25 10:29 Blood Pressure 153/82 H 03/01/25 10:29 Pulse Oximetry 98 03/01/25 10:29 Temperature 97.7 F 03/01/25 10:29 Pulse Rate 76 03/01/25 10:29 Respiratory Rate 16 03/01/25 10:29 Blood Pressure 153/82 H 03/01/25 10:29 Pulse Oximetry 98 03/01/25 10:29 MDM - URI/Sore Throat MDM Narrative Medical decision making narrative: Chest x-ray negative for any pneumonia or acute findings. Likely bronchitis. Will treat with Medrol Dosepak and benzonatate tablets. Discussed physical exam findings. Advised supportive measures and signs/symptoms to go to the ER. Pt is appropriate for outpt treatment and f/u. Differential Diagnosis Differential diagnosis: Likely upper respiratory infection, sinusitis, bronchitis and other (Adverse reaction to medication) Discharge Plan Discharge Clinical Impression: Bronchitis Patient Disposition: Home Condition: Stable Instructions: Acute Bronchitis (ED) Additional Instructions: Acute bronchitis can be contagious because it is usually caused by infection with a virus or bacteria. It is usually for a few days but you can be contagious for up to one week. Avoid crowds until you do not have a fever and symptoms are improved Take steroid Dosepak as directed. Recommend Flonase spray and Zyrtec (or Claritin/Gloria) Take benzonatate tablets as needed for cough. Tylenol every 8 hours as needed for pain Symptomatic treatment includes: rest, fluids, and increase humidity of the air at home. Follow up with your primary care provider as needed in 1 week Go to the ER for worsening symptoms, difficulty breathing, chest pains, fevers, or serious concerns Patient Language: Danish Prescriptions: New benzonatate 100 mg capsule 100 mg PO TID PRN (Reason: cough) Qty: 20 0RF methylprednisolone 4 mg tablets,dose pack See Rx Instructions .ROUTE .COMPLEX Qty: 21 0RF Rx Instructions: for 6 days No Action progesterone micronized 200 mg capsule 200 mg PO QHS Rx Instructions: USES 10 DAYS THROUGHT THE MONTH BASED ON PERIOD lisinopril 10 mg tablet See Rx Instructions .ROUTE .COMPLEX Qty: 90 0RF Dose Instruction: TAKE 1 TABLET BY MOUTH AT BEDTIME Rx Instructions: TAKE 1 TABLET BY MOUTH AT BEDTIME Follow-up/Referrals: Kemar Armas MD [Primary Care Provider] - Time of Disposition: 11:33
== END 2025-03-01 11:38 | disposition home or self-care (01) ==
PROVIDERS: PCP Family Medicine
DX: J40 Bronchitis, not specified as acute or chronic (principal); I10 Essential (primary) hypertension; I27.20 Pulmonary hypertension, unspecified; K21.9 Gastro-esophageal reflux disease without esophagitis
CPT/HCPCS: 71046; 99213; G0463

== ENCOUNTER 2025-07-19 09:19 | Outpatient (CLI) | payer BC, SELFPAY ==
[2025-07-19 09:39] LABS: Hematocrit 40.8 % (37.0-47.0); Hemoglobin 13.0 g/dL (12.0-15.0); Immature Granulocyte Percent A 0.2 % (0-0.5); Lymphocytes Absolute Auto 1.32 K/mm3 (0.9-3.2); Mean Corpuscular HGB Conc 31.9 g/dl (32-36); Mean Corpuscular Hemoglobin 27.5 pg (26-34); Mean Corpuscular Volume 86.3 fl (80-100); Nucleated Red Blood Cells Absolute Auto 0.000 K/mm3 (0.0-0.012); Nucleated Red Blood Cells Perc 0.0 % (0.0-0.2); Platelet Count Result 293 k/mm3 (150-375); Red Blood Count 4.73 M/mm3 (4.2-5.4); White Blood Count 6.5 K/mm3 (4.5-10.0)
[2025-07-19 10:00] LABS: Alanine Aminotransferase 15 U/L (6-35); Albumin Level 4.4 g/dL (3.5-5.1); Alkaline Phosphatase 90 U/L (38-126); Anion Gap 7 mmol/L (4-12); Aspartate Amino Transferase 22 U/L (14-36); Bilirubin,Total 1.4 mg/dL (0.2-1.3); Blood Urea Nitrogen 13 mg/dL (7-17); Calcium 8.7 mg/dL (8.4-10.2); Carbon Dioxide 24 mmol/L (22-30); Chloride 107 mmol/L (98-107); Cholesterol 218 mg/dL (0-200); Estimated Glomerular Filt Rate > 60; Glucose 104 mg/dL (65-110); HDL Direct 43 mg/dL; Potassium 4.1 mmol/L (3.4-5.0); Sodium 138 mmol/L (137-145); Total Protein 7.5 g/dL (6.3-8.2); Triglycerides 75 mg/dL (<150)
[2025-07-19 10:36] LABS: Thyroid Stimulating Hormone 0.933 uIU/mL (0.465-4.680)
== END 2025-07-19 09:20 | disposition home or self-care (01) ==
LOC: ANHLAB 09:21
PROVIDERS: PCP Family Medicine; Visit Provider Nurse Practitioner Family
DX: E55.9 Vitamin D deficiency, unspecified (principal); Z13.1 Encounter for screening for diabetes mellitus; Z13.220 Encounter for screening for lipoid disorders
CPT/HCPCS: 36415; 80053; 80061; 82306; 84443; 85025